=== PATIENT | male | born 1970 | race Caucasian/White ===

== ENCOUNTER → 2016-06-10 | Outpatient (CLI) | payer OTHER ==
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
== END | disposition home or self-care (01) ==
LOC: KCIC MRI 15:18
PROVIDERS: ATTEND Family Medicine
DX: M47.892 Other spondylosis, cervical region (principal); R51 Headache
CPT/HCPCS: 70551; 72141

== ENCOUNTER → 2016-12-16 | Outpatient (CLI) | payer OTHER ==
--- NOTE | 2016-12-16 15:02 | CARD ---
APPROVED REPORT INDICATION Dyspnea PROCEDURE The patient underwent an Exercise Stress Test using the Vadim Protocol. Blood pressure, heart rate, a nd EKG were monitored. An Echocardiogram was performed by machining technician in four stages in quad fashion. At peak stress four se lected images were obtained and placed side by side with resting images for comparison. STRESS ECHO FINDINGS The resting Echocardiogram showed normal left ventricular contractility with an estimated Ejection Fr action of about 60 %. Normal augmentation of myocardial wall segments using a 16 segment model. Test Type: Exercise Stress Nurse/Tech: ben amezcua Test Indications: dyspnea Cardiac History and Allergies: NONE STATED Medications: NONE STATED Medical History: NONE STATED Resting ECG: SR Resting Heart Rate: 71 bpm Resting Blood Pressure: 122/72mmHg Pretest Chest Pain: No chest pain Nurse/Tech Notes NO RESPIRATORY DISTRESS OR CHEST PAIN AT THIS TIME. Consent: The procedure was explained to the patient in lay terms. Informed consent was witnessed. Jesse rox was entered into [employer]. History and Stress Test performed by BEN AMEZCUA Stress Symptoms SHORTNESS OF AIR, PT WAS AT A FULL RUN. POST EXERCISE Reason for Termination: Reached target heart rate Target HR: 149 Max HR: 151 bpm 86% of Maximum Predicted HR: 175 bpm Exercise duration: 12:12 min:sec, Stage Exercise capacity: 12.8METs Max Blood Pressure: 156/78mmHg Blood Pressure response to exercise: Normal blood pressure response during stress. Heart Rate response to exercise: WNL Chest Pain: No. Arrhythmia: No. ST Change: No. INTERPRETATION Stress EKG Conclusion: Baseline EKG showed sinus rhythm. No ischemic changes at peak stress. No arr hythmias. Preliminary Notification Critical Value: No <Conclusion> Treadmill exercise stress echocardiogram did not show any evidence of ischemia or infarct. Normal left ventricle systolic function with ejection fraction estimated at 60%. Patient had good activity tolerance. Low risk for cardiac events.
== END | disposition home or self-care (01) ==
LOC: ECHO 12:52
PROVIDERS: ATTEND Internal Medicine
DX: F43.9 Reaction to severe stress, unspecified (principal); R06.00 Dyspnea, unspecified; R42 Dizziness and giddiness
CPT/HCPCS: 93017; 93350